=== PATIENT | female | born 1990 | race Caucasian/White ===

== ENCOUNTER 2025-10-09 07:27 | Day surgery (SDC) | payer OTHER | END 2025-10-09 14:00 | disposition home or self-care (01) | LOC: DS 07:27 | PROC: 0UBC8ZZ Excision of Cervix, Via Natural or Artificial Opening Endoscopic (ICD-10-PCS; principal; 2025-10-09) | PROC: 0UDB8ZZ Extraction of Endometrium, Via Natural or Artificial Opening Endoscopic (ICD-10-PCS; 2025-10-09) | PROC: 0UT74ZZ Resection of Bilateral Fallopian Tubes, Percutaneous Endoscopic Approach (ICD-10-PCS; 2025-10-09) | DX: N87.1 Moderate cervical dysplasia (principal); N93.9 Abnormal uterine and vaginal bleeding, unspecified; Z87.891 Personal history of nicotine dependence; Z88.1 Allergy status to other antibiotic agents; Z91.040 Latex allergy status ==